=== PATIENT | female | born 1975 | race Caucasian/White ===

== ENCOUNTER 2016-08-04 23:47 | Emergency (ER) | payer SELFPAY ==
[~2016-08-04] VITALS: Ht 160 cm; Wt 70.3 kg
[2016-08-05] MEDS ORDERED: UNOBMED (00:24)
[2016-08-05 01:08] VITALS: BP 109/73
--- NOTE | 2016-08-05 04:20 | Emergency Room Report ---
History of Present Illness General Chief Complaint: Altered Level of Consciousness Source: Patient Present Illness HPI 40-year-old female presents ED intoxication. Patient brought in by EMS. States that patient was found passed out in taxi after leaving restaurant. Taxi called 911. When EMS arrived, patient swung at EMS staff. Patient placed in handcuffs by police. Upon arrival patient admitted to drinking. Denies any drug use. States she just wants to sleep. Denies any headache, blurry vision, nausea or vomiting. Denies chest pain shortness of breath. No aggravating relieving factors. Denies any other associated symptoms Allergies: Coded Allergies: No Known Allergies (Unverified , 08/04/16) Patient History Past Medical History: none Past Surgical History: none Pertinent Family History: none Social History: Reports: alcohol use, Denies: drug use, smoking Last Menstrual Period: unk Now: No Immunizations: UTD Reviewed Nursing Documentation: PMH: Agreed, PSxH: Agreed Nursing Documentation-PMH Past Medical History: No Stated History Review of Systems All Other Systems: negative except mentioned in HPI Physical Exam Vital Signs Date Time Temp Pulse Resp B/P Pulse Ox O2 Delivery O2 Flow Rate FiO2 08/04/16 23:44 98.1 97 16 109/73 96 Room Air Sp02 EP Interpretation: reviewed, normal General Appearance: other - intoxicated Head: normocephalic ENT: normal ENT inspection Neck: normal inspection Respiratory: chest non-tender, lungs clear, normal breath sounds, speaking full sentences Cardiovascular #1: regular rate, rhythm, no edema Gastrointestinal: normal bowel sounds, non tender, soft, non-distended, no guarding, no rebound Rectal: deferred Genitourinary: no CVA tenderness Musculoskeletal: normal inspection Neurologic: other - Intoxicated Psychiatric: other - Intoxicated Skin: normal inspection Lymphatic: normal inspection Medical Decision Making Diagnostic Impression: Primary Impression: Alcohol intoxication Qualified Codes: F10.120 - Alcohol abuse with intoxication, uncomplicated ER Course Hospital Course 40-year-old female presents to ED status post EtOH intoxication. Found passed out in taxi. Clinical course Patient placed on stretcher. Given that patient is able to provide an adequate history, I see no need to check blood work or place an IV. Patient allowed to sleep. Patient tried to get up and leave however patient did have unsteady gait at the time. Nursing staff asked patient to rest a little longer before she is discharged. Patient is screaming, agitated. Cursing at staff. Patient displayed similar behavior with EMS. Patient was initially handcuffed by [employer] but is not under arrest States she is able to call an Uber to take her home patient is now walking with a steady gait and I believe patient can be discharged at this time My assessment shows no evidence of SI/HI requiring psychiatric evaluation. Diagnosis - ETOH intoxication stable and discharged to home. Followup with PMD. Return to ED if symptoms recur or worsen Last Vital Signs Date Time Temp Pulse Resp B/P Pulse Ox O2 Delivery O2 Flow Rate FiO2 08/05/16 01:08 98.1 16 109/73 96 Room Air 08/04/16 23:44 97 Status: improved Disposition: HOME, SELF-CARE Condition: Stable Referrals: NOT CHOSEN IPA/,REFERRING (PCP) Patient Instructions: Alcohol Intoxication, [id number] MARQUIS HERNÁNDEZ M.D. Aug 05, 2016 04:20
== END 2016-08-05 01:10 | disposition home or self-care (01) ==
LOC: EDBD 23:47 → EMR 23:59
DX: F10.129 Alcohol abuse with intoxication, unspecified (principal)
CPT/HCPCS: 99284

== ENCOUNTER 2018-11-20 00:33 | Emergency (ER) | payer SELFPAY ==
[~2018-11-20] VITALS: Ht 165.1 cm; Wt 90.7 kg
[~2018-11-20 00:33] MED LIST: UNOBMED
[2018-11-20] MEDS ORDERED: UNOBMED (00:35)
[2018-11-20 01:08] VITALS: BP 125/83
--- NOTE | 2018-11-20 01:08 | NUR ---
ED Nurse Note: Pt found out of bed, wearing 4" heels (removed) - urinated on the floor. Required security assistance to get her back in the [place]. Refusing to have blood work drawn.
--- NOTE | 2018-11-20 01:09 | NUR ---
ED Nurse Note: Pt was BIBA from street, c/o ETOH. Pt is Awake, very confused and uncooperative. Pt wet her own pents. Vital signs stable at this time. Waiting for orders.
--- NOTE | 2018-11-20 01:10 | NUR ---
ED Nurse Note: Pt refused to have blood draw, awared.
[2018-11-20 03:11] VITALS: BP 123/81
--- NOTE | 2018-11-20 03:11 | NUR ---
ER DISCHARGE NOTE: Patient is cleared to be discharged per Dr. Arredondo. Pt is aox4 on room air with stable vital signs. Pt was given dc and prescription instructions and was able to verbalize understanding. Pt's ID band removed. Pt is able to ambulate well with steady gait and took all belongings.
--- NOTE | 2018-11-20 21:13 | Emergency Room Report ---
History of Present Illness General Chief Complaint: Alcohol Intoxication Source: Patient Present Illness HPI 43-year-old female presents to ED for evaluation. Patient brought in by EMS for alcohol intoxication. 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 Upon arrival patient admits to drinking. Denies drug use. States that she wants to sleep. Denies abdominal pain nausea or vomiting. Denies no other aggravating or relieving factors. Denies any other associated symptoms Allergies: Coded Allergies: No Known Allergies (Unverified , 08/04/16) Patient History Past Medical History: none Past Surgical History: none Pertinent Family History: none Social History: Reports: alcohol use; Denies: smoking, drug use Last Menstrual Period: UNKNOWN - pt will not answer Now: No Immunizations: UTD Reviewed Nursing Documentation: PMH: Agreed; PSxH: Agreed Nursing Documentation-PMH Past Medical History Deferred: Pt Cognitively Impaired Review of Systems All Other Systems: negative except mentioned in HPI Physical Exam Vital Signs Date Time Temp Pulse Resp B/P (MAP) Pulse Ox O2 Delivery O2 Flow Rate FiO2 11/20/18 00:31 97.2 88 16 121/86 (98) 99 Room Air Sp02 EP Interpretation: reviewed, normal General Appearance: other - intoxicated Head: normocephalic Eyes: bilateral eye normal inspection, bilateral eye PERRL ENT: normal ENT inspection Neck: normal inspection Respiratory: chest non-tender, lungs clear, normal breath sounds, speaking full sentences Cardiovascular #1: regular rate, rhythm, no edema Gastrointestinal: normal inspection Rectal: deferred Genitourinary: no CVA tenderness Musculoskeletal: normal inspection Neurologic: other - intoxicated Psychiatric: other - intoxicated Skin: normal inspection Lymphatic: normal inspection Medical Decision Making Diagnostic Impression: Primary Impression: Alcohol intoxication Qualified Codes: F10.929 - Alcohol use, unspecified with intoxication, unspecified ER Course Hospital Course 43-year-old female presents to ED status post EtOH intoxication. Clinical course Patient placed on stretcher. After initial history physical exam reveals a female in no acute distress. Is protecting airway. However intoxicated. I ordered labs, IV fluids. Refused all lab draw and IV access. Patient asked to sleep. Patient allowed to rest in now awake alert oriented x3. ambulating without difficulty. Is now clinically sober and will be discharged to home. Diagnosis - ETOH intoxication stable and discharged to home. Followup with PMD. Return to ED if symptoms recur or worsen Last Vital Signs Date Time Temp Pulse Resp B/P (MAP) Pulse Ox O2 Delivery O2 Flow Rate FiO2 11/20/18 03:11 97.8 85 16 123/81 99 Room Air Status: improved Disposition: HOME, SELF-CARE Condition: Stable Referrals: NOT CHOSEN IPA/,REFERRING (PCP) Mayra Miranda [facility]. [facility] Patient Instructions: Alcohol Intoxication You Arredondo MD Nov 20, 2018 21:13
== END 2018-11-20 03:11 | disposition home or self-care (01) ==
LOC: EDBD 00:33 → EMR 00:44
DX: F10.129 Alcohol abuse with intoxication, unspecified (principal)
CPT/HCPCS: 96360; 99284